=== PATIENT | male | born 1995 | race Caucasian/White ===

== ENCOUNTER 2017-09-09 07:37 | Day surgery (SDC) | payer BC ==
[~2017-09-09] VITALS: Ht 165.1 cm; Wt 106.6 kg
[2017-09-09] VITALS (7 sets, daily range): BP systolic 106–134; BP diastolic 51–73
[2017-09-09] MEDS ORDERED: ADDERAL20 MG ORAL (09:21)
--- NOTE | 2017-09-09 09:33 | Short Stay Surgery H&P ---
History of Present Illness History of Present Illness Chief Complaint GERD HPI Huy Horvath is a 21 year old male who was admitted on for GERD Patient History Allergies: Coded Allergies: No Known Allergies (Unverified , 09/08/17) PAST MEDICAL HISTORY: (1) GERD (gastroesophageal reflux disease) Past Surgeries: Social History: Medication History Scheduled Dextroamphetamine/Amphetamine (Adderall 20 mg Tablet), 20 MG ORAL DAILY, ( Reported) Review of Systems Cardiovascular: Reports: no symptoms Respiratory: Reports: no symptoms Skeletal: Reports: no symptoms Gastrointestinal: Reports: gastro esophageal reflux disease Genitourinary: Reports: no symptoms Neurologic: Reports: no symptoms Endocrine: Reports: no symptoms Hematologic: Reports: no symptoms Physical Exam Vital Signs Last Vital Signs Date Time Temp Pulse Resp B/P (MAP) Pulse Ox O2 Delivery O2 Flow Rate FiO2 09/09/17 09:21 98.7 78 18 106/51 98 Room Air Skin: normal HENT: normal Heart: normal Lungs: normal Abdomen: normal Extremities: normal Plan Plan of Care EGD Final Diagnosis: Attestation Are the patient's medical conditions optimized for surgery? Attestation Response: yes JENNIFER WADE Sep 09, 2017 09:33
--- NOTE | 2017-09-09 09:33 | Pre-Procedure Note/Attestation ---
Pre-Procedure Note/Attestation Complete Prior to Procedure Planned Procedure: not applicable Procedure Narrative: EGD Indications for Procedure Pre-Operative Diagnosis: GERD Attestation I attest that I discussed the nature of the procedure; its benefits; risks and complications; and alternatives (and the risks and benefits of such alternatives ), prior to the procedure, with the patient (or the patient's legal event sales representative). I attest that, if there was a reasonable possibility of needing a blood transfusion, the patient (or the patient's legal event sales representative) was given the [facility] standardized written summary, pursuant to the [place] Blood Safety Act ([place] Health and Safety Code # 1645, as amended). I attest that I re-evaluated the patient just prior to the surgery and that there has been no change in the patient's H&P, except as documented below: JENNIFER WADE Sep 09, 2017 09:33
[2017-09-09] MEDS ORDERED: Propofol 200mg/20ml IV ONE (10:00)
[2017-09-09] MEDS ORDERED: Midazolam 2mg/2ml Inj ONE (10:00)
--- NOTE | 2017-09-09 10:29 | Anethesia Preoperative Eval ---
Anesthesia Pre-op PMH/ROS General Date of Evaluation: Sep 09, 2017 Time of Evaluation: 10:05 Anesthesiologist: Devonte ASA Score: ASA 1 Mallampati Score Class I : Soft palate, uvula, fauces, pillars visible Class II: Soft palate, uvula, fauces visible Class III: Soft palate, base of uvula visible Class IV: Only hard plate visible Mallampati Classification: Class II Surgeon: Jenniffer Diagnosis: gerd Surgical Procedure: EGD Anesthesia History: none Family History: no anesthesia problems Allergies: Coded Allergies: No Known Allergies (Unverified , 09/08/17) Medications: see eMAR Past Medical History Cardiovascular: Denies: HTN, CAD, VT, valve dz, arrhythmia, other Pulmonary: Denies: asthma, COPD, CALIN, other Gastrointestinal/Genitourinary: Reports: GERD Neurologic/Psychiatric: Denies: dementia, CVA, depression/anxiety, TIA, other Endocrine: Denies: DM, hypothyroidism, steroids, other HEENT: Denies: cataract (L), cataract (R), glaucoma, OSAGE (L), OSAGE (R), other Hematology/Immune: Denies: anemia, DVT, bleeding disorder, other Musculoskeletal/Integumentary: Denies: OA, RA, DJD, DDD, edema, other Anesthesia Pre-op Phys. Exam Physician Exam Last Vital Signs Date Time Temp Pulse Resp B/P (MAP) Pulse Ox O2 Delivery O2 Flow Rate FiO2 09/09/17 09:21 98.7 78 18 106/51 98 Room Air Constitutional: NAD Neurologic: CN 2-12 intact Cardiovascular: RRR Respiratory: CTA Gastrointestinal: S/NT/ND Airway Exam Mallampati Score: Class II MO: full ROM: full Teeth: intact Dentures: no upper, no lower Anesthesia Pre-op A/P Risk Assessment & Plan Assessment: A&Ox4 Plan: MAC Status Change Before Surgery: No Pre-Antibiotics Given Within 1 Hr of Incision: Fay Farley CRNA Sep 09, 2017 10:29
--- NOTE | 2017-09-09 10:31 | Immediate Post-Op Evaluation ---
Immediate Post-Op Evalulation Immediate Post-Op Evalulation Procedure: EGD Date of Evaluation: Sep 09, 2017 Time of Evaluation: 10:25 IV Fluids: NSS 350 ml Blood Products: 0 Estimated Blood Loss: 0 Urinary Output: 0 Blood Pressure Systolic: 114 Blood Pressure Diastolic: 64 Pulse Rate: 76 Respiratory Rate: 20 O2 Sat by Pulse Oximetry: 100 Temperature (Fahrenheit): 97.5 Pain Score (1-10): 0 Nausea: No Vomiting: No Complications none Patient Status: awake, reacts, patent Hydration Status: adequate Given Within 1 Hr of Incision: Fay Farley CRNA Sep 09, 2017 10:31
--- NOTE | 2017-09-09 10:32 | 48 Hour Post Anesthesia Eval ---
Post Anesthesia Evaluation Procedure: EGD Date of Evaluation: Sep 09, 2017 Time of Evaluation: 10:31 Blood Pressure Systolic: 130 0: 62 Pulse Rate: 75 Respiratory Rate: 22 Temperature (Fahrenheit): 97.5 O2 Sat by Pulse Oximetry: 99 Nausea: No Vomiting: No Pain Intensity: 0 Hydration Status: adequate Mental Status/LOC: patient returned to baseline Follow-up care needed: patient intructions given Fay Whitney CRNA Sep 09, 2017 10:32
--- NOTE | 2017-09-09 10:37 | Endoscopy Procedure Note ---
Endoscopy Procedure Note Indication for Procedure: gerd Procedures Performed: EGD Operative Findings/Diagnosis: gastritis Specimen: yes Pt Tolerated Procedure Well: Yes Estimated Blood Loss: none Anesthesiologist: marcio Anesthesia: MAC Implant(s) used?: No 50 yrs or older w/o bx or poly: Not Applicable 10yrs. F/U not recommended: Not Applicable JENNIFER WADE Sep 09, 2017 10:37
--- NOTE | 2017-09-09 15:01 | Procedure Note ---
DATE OF PROCEDURE: 09/09/2017 SURGEON: Genaro Abad M.D. PROCEDURE: Upper endoscopy with biopsy. ANESTHESIA: Per Devonte GROVER. INSTRUMENT: Olympus adult flexible upper endoscope. INDICATION: Chronic reflux disease for two years, not responding to the medication. REASON FOR PROCEDURE: The procedure, risks, benefits, and possible consequences, including hemorrhage, aspiration, perforation and infection, and alternative treatments, were explained to the patient/legal guardian by Dr. Genaro Abad and the patient/legal guardian understood and accepted these risks. PROCEDURE: After informed consent was obtained and the patient was adequately sedated, Olympus upper endoscope was advanced from mouth to the second portion of the duodenum and retroflexion was performed in the stomach. Gastroesophageal junction was found to be about 39 centimeter from the incisors. There was evidence of irregularity at the Z-line without any obvious esophagitis. No obvious large hiatal hernia. In the stomach, there was diffuse gastritis. Random biopsies from antrum and body was obtained to rule out H. pylori infection. The rest of the examination was within limits. At this time, the upper endoscope was retrieved and procedure was terminated. SUMMARY FINDINGS: 1. Irregular Z-line. 2. Diffuse gastritis status biopsy. RECOMMENDATION: 1. Follow biopsy results and treat accordingly. 2. Start omeprazole 40 mg p.o. daily. 3. The patient to follow up in the office for further followup. I want to thank, Dr. Manuel Horvath, for this kind referral. Genaro Abad M.D. DR: ERNESTO JOB#: [id number] CC: Manuel Horvath M.D.; Fax#: [phone]
== END 2017-09-09 11:25 | disposition home or self-care (01) ==
LOC: GAS 07:37
DX: K21.9 Gastro-esophageal reflux disease without esophagitis (principal); K29.50 Unspecified chronic gastritis without bleeding
CPT/HCPCS: 43239; J2250; J2704; 94003; 94150